=== PATIENT | female | born 1995 | race African-American/Black ===

== ENCOUNTER 2020-08-14 13:50 | Emergency (ER) | payer MEDICAID, OTHER ==
[~2020-08-14] VITALS: Ht 177.8 cm; Wt 106.8 kg
[~2020-08-14 13:50] MED LIST: CEPH500C2 PO; DOCU250C14 PO; FERR-72 PO; HYDR-3965 PO; IBUP-2070 PO; METR-172 PO; NOCURR; OXYC1TAB18 PO
[2020-08-14] MEDS ORDERED: HYDROCODONE/ACETAMINOPHEN 5-325 MG TABLET PO ONE (14:15)
[2020-08-14 15:22] VITALS: BP 122/78
== END 2020-08-14 15:43 | disposition home or self-care (01) ==
LOC: EMS 13:56
DX: S50.02XA Contusion of left elbow, initial encounter (principal); W10.8XXA Fall (on) (from) other stairs and steps, initial encounter; Y93.89 Activity, other specified; Y92.89 Other specified places as the place of occurrence of the external cause; Y99.8 Other external cause status
CPT/HCPCS: 99283